=== PATIENT | female | born 1995 | race Caucasian/White ===

== ENCOUNTER → 2019-04-13 | Outpatient (CLI) | payer MEDICAID ==
--- NOTE | 2019-04-13 17:04 | PCVCIMAG ---
APPROVED REPORT Study performed: 04/13/2019 15:10:32 EXAM: Limited 2D, Doppler, and color-flow Echocardiogram Patient Location: Echo lab Status: routine BSA: 1.59 HR: 84 bpm Rhythm: NSR Other Information Study Quality: Adequate Indications Murmur Patent Ductus Arteriosus Pulmonic Valve Mild pulmonic insufficiency Great Vessels High velocity flow in the region of the aortopulmonary window (4.8m/sec), continuous diastolic flow suggesting patent ductus arteriosus. Alternative imaging is recommended. Pulmonary artery appears normal in caliber. <Conclusion> Limited study with views from suprasternal notch Pulmonary artery appears normal in caliber. High velocity flow in the region of the aortopulmonary window (4.8m/sec), continuous diastolic flow suggesting patent ductus arteriosus Mild pulmonic insufficiency Alternative imaging is recommended.
== END | disposition home or self-care (01) ==
LOC: PCVCIMAG 15:30
PROVIDERS: ATTEND Internal Medicine
DX: J98.4 Other disorders of lung (principal); Q25.0 Patent ductus arteriosus; E78.5 Hyperlipidemia, unspecified; J45.909 Unspecified asthma, uncomplicated; Z72.89 Other problems related to lifestyle; Z79.899 Other long term (current) drug therapy; G43.019 Migraine without aura, intractable, without status migrainosus; Z87.820 Personal history of traumatic brain injury
CPT/HCPCS: 93308